=== PATIENT | female | born 1965 | race Caucasian/White ===

== ENCOUNTER 2016-12-28 12:31 | Emergency (ER) | payer MEDICARE, OTHER | END 2016-12-28 13:34 | disposition home or self-care (01) | LOC: ER 12:31 | DX: K12.2 Cellulitis and abscess of mouth (principal); Z85.3 Personal history of malignant neoplasm of breast; J45.909 Unspecified asthma, uncomplicated; E03.9 Hypothyroidism, unspecified; Z90.10 Acquired absence of unspecified breast and nipple; F17.210 Nicotine dependence, cigarettes, uncomplicated; Z79.899 Other long term (current) drug therapy; Z79.84 Long term (current) use of oral hypoglycemic drugs | CPT/HCPCS: 96372; 99282-25; 99283 ==

== ENCOUNTER → 2017-01-21 | Day surgery (SDC) | payer MEDICARE, OTHER | LOC: OPS 07:32 | PROC: 0DJD8ZZ Inspection of Lower Intestinal Tract, Via Natural or Artificial Opening Endoscopic (ICD-10-PCS; principal; 2017-01-21) | DX: Z12.11 Encounter for screening for malignant neoplasm of colon (principal); K57.90 Diverticulosis of intestine, part unspecified, without perforation or abscess without bleeding; D64.9 Anemia, unspecified; F41.9 Anxiety disorder, unspecified; I10 Essential (primary) hypertension; Z85.3 Personal history of malignant neoplasm of breast; F32.9 Major depressive disorder, single episode, unspecified; E11.9 Type 2 diabetes mellitus without complications; E78.5 Hyperlipidemia, unspecified; E03.9 Hypothyroidism, unspecified; F17.210 Nicotine dependence, cigarettes, uncomplicated; Z90.11 Acquired absence of right breast and nipple; Z98.890 Other specified postprocedural states; Z79.899 Other long term (current) drug therapy; Z79.1 Long term (current) use of non-steroidal anti-inflammatories (NSAID); Z79.84 Long term (current) use of oral hypoglycemic drugs ==

== ENCOUNTER 2017-03-14 23:07 | Emergency (ER) | payer MEDICARE | END 2017-03-14 23:45 | disposition home or self-care (01) | LOC: ER 23:07 | DX: L73.9 Follicular disorder, unspecified (principal); Z79.899 Other long term (current) drug therapy; Z79.1 Long term (current) use of non-steroidal anti-inflammatories (NSAID); Z79.891 Long term (current) use of opiate analgesic | CPT/HCPCS: 87070; 87186; 99070; 99283 ==